=== PATIENT | male | born 1960 | race Caucasian/White ===

== ENCOUNTER 2017-01-10 12:53 | Inpatient (IN) | payer MEDICARE, MEDICAID ==
[~2017-01-10] VITALS: Ht 175.3 cm; Wt 79.4 kg
[2017-01-10 13:36] LABS: HEMATOCRIT 47.9 % (42.0-54.0); HEMOGLOBIN 16.9 g/dL (13.5-17.5); MCH 28.6 pg (26.0-34.0); MCHC 35.3 g/dL (31.0-37.0); MEAN PLATELET VOLUME 10.1 fL (7.4-10.4); PLATELET COUNT 270 10x3/uL (130-400); RBC 5.91 10x6/uL (4.20-6.10); RDW 13.9 % (11.5-14.5); WBC 24.6 10x3/uL (4.8-10.8)
[2017-01-10 13:42] LABS: APPEARANCE CLOUDY (CLEAR); BILIRUBIN NEGATIVE (NEGATIVE); COLOR AMBER (YELLOW); GLUCOSE NEGATIVE (NEGATIVE); KETONE SMALL mg/dL (NEGATIVE); LEUKOCYTE ESTERASE TRACE (NEGATIVE); NITRITE NEGATIVE (NEGATIVE); PROTEIN TRACE mg/dL (NEGATIVE); SPECIFIC GRAVITY 1.025 (1.005-1.020); UROBILINOGEN NORMAL (NORMAL)
[2017-01-10 13:48] LABS: AMORPHOUS SEDIMENT <1+ /lpf (NONE SEEN); BACTERIA MODERATE /hpf (NONE SEEN); EPITHELIAL CELLS OCC /hpf (0-5); GRANULAR CAST RARE /lpf (NONE SEEN); HYALINE CAST OCC /lpf (NONE SEEN); MUCUS >1+ /lpf (NONE SEEN); RED CELLS - URINE OCC /hpf (0-5); WHITE CELLS - URINE 0-5 /hpf (0-5)
[2017-01-10 13:50] LABS: ALBUMIN 3.8 g/dL (3.4-5.0); ALKALINE PHOSPHATASE 139 U/L (46-116); ALT (SGPT) 21 U/L (10-68); BILIRUBIN - TOTAL 1.06 mg/dL (0.2-1.3); CALC OSMOLALITY 281 mosm/kg (275-300); CALCIUM 9.3 mg/dL (8.5-10.1); CARBON DIOXIDE 20.7 mmol/L (21.0-32.0); CHLORIDE - SERUM 104 mmol/L (98-107); CREATININE - SERUM 0.7 mg/dL (0.6-1.3); GLUCOSE 158 mg/dL (74-106); POTASSIUM - SERUM 3.6 mmol/L (3.5-5.1); PROTEIN - SERUM 7.9 g/dL (6.4-8.2); SODIUM 139 mmol/L (136-145); UREA NITROGEN 14 mg/dL (7-18); eGFR NON AFRICAN AMERICAN > 90 mL/min (90-120)
[2017-01-10 13:55] LABS: LYMPHOCYTES 9 % (15-50); MONOCYTES 3 % (2-11); NEUTROPHILS 84 % (40-80); PLATELET ESTIMATE NORMAL
--- NOTE | 2017-01-10 15:58 | NUR ---
RECEIVED TO ROOM 2215 FROM ER VIA . IV TO R FA PATENT. NG TUBE CONNECTED TO LIS.
[2017-01-10] MEDS ORDERED: OXYMORPHONE HCL30 MG (16:15)
[2017-01-10] MEDS ORDERED: ZOCOR80 MG PO (16:16)
[2017-01-10] MEDS ORDERED: FLOMAX0.4 MG PO ×2 (16:16)
[2017-01-10] MEDS ORDERED: OXYCONTIN15 MG PO (16:16)
[2017-01-10] MEDS ORDERED: CARAFATE1 G PO (16:17)
[2017-01-10] MEDS ORDERED: PHENERGAN25 M1 PO (16:17)
[2017-01-10] MEDS ORDERED: LUNESTA3 MG PO (16:17)
[2017-01-10] MEDS ORDERED: ROBAXIN-750750 MG PO (16:18)
[2017-01-10] MEDS ORDERED: NEURONTIN 300300 MG PO (16:19)
[2017-01-10 16:26] VITALS: BP 129/89; BMI 25.9
--- NOTE | 2017-01-10 16:50 | NUR ---
GALLERY OR MUSEUM GUIDE DILAUDID 0.2-10-4 SETUP FOR PAIN CONTROL.
--- NOTE | 2017-01-10 17:30 | NUR ---
ASKING FOR SOMETHING TO DRINK. EXPLAINED THAT WHILE NPO WITH NG TUBE HE WON'T BE ABLE TO HAVE ANYTHING TO DRINK. VOICED UNDERSTANDING. MOUTH SWAB GIVEN.
[2017-01-10 17:58] VITALS: BP 129/83
[2017-01-10 19:00] VITALS: BP 100/76
[2017-01-11 00:05] VITALS: BP 105/73
--- NOTE | 2017-01-11 03:02 | NUR ---
NGT FELL OUT OF PATINET'S NARE. HE ATTEMPTED TO PLACE IT HIMSELF MULTIPLE TIMES. MINIMAL DRAINAGE NOTED FROM NGT. DID NOT REPLACE
[2017-01-11 03:30] VITALS: BP 99/59
--- NOTE | 2017-01-11 05:02 | NUR ---
PIV TO RIGHT FOREARM ACCIDENTLY PULLED OUT WITH CATH INTACT. NEW 20G PIV PLACED IN LEFT FOREARM IV FLUIDS HOOKED BACK UP.
--- NOTE | 2017-01-11 05:55 | NUR ---
PATIENT RESTING WITH EYES CLOSED AND NO VISIBLE SIGNS OF DISTRESS. BED IN LOWEST POSITION AND CALL LIGHT WITHIN REACH.
--- NOTE | 2017-01-11 07:40 | NUR ---
ASSESSMENT COMPLETE. IV TO L FA PATENT. GOLD LAYER DILAUDID 0.2-10-4 IN USE FOR PAIN CONTROL. DENIES ANY COMPLAINT OF NAUSEA AT THIS TIME.
--- NOTE | 2017-01-11 07:41 | NUR ---
RESTING QUIETLY WITH EYES CLOSED. RESP EVEN,NONLABORED. FAMILY AT BEDSIDE.
[2017-01-11 09:36] VITALS: BP 111/67
--- NOTE | 2017-01-11 11:12 | NUR ---
WANTING TO WALK IN HALLWAYS. INSTRUCTED NOT TO LEAVE FLOOR. VOICED UNDERSTANDING.
--- NOTE | 2017-01-11 15:00 | NUR ---
NO CHANGES NOTED AT PRESENT. AMBULATING FREQUENTLY IN HALLWAYS.
[2017-01-11 15:51] VITALS: BP 104/66
--- NOTE | 2017-01-11 17:30 | NUR ---
REQUESTING BOTTLE OF MAGNESIUM CITRATE. STATES HE HASN'T HAD A BM IN [address] RAYGOZA. ORDER RECEIVED FOR 4 OZ'S OF MAG CITRATE.
[2017-01-11 20:00] VITALS: BP 99/63
--- NOTE | 2017-01-12 02:25 | NUR ---
PATIENT RESTING WITH EYES CLOSED AND NO VISIBLE SIGNS OF DISTRESS. BED IN LOWEST POSITION AND CALL LIGHT WITHIN REACH.
--- NOTE | 2017-01-12 03:14 | NUR ---
PATIENT REPORTED HAVING A LARGE DARK BM.
[2017-01-12 04:00] VITALS: BP 90/60
[2017-01-12 05:41] LABS: BASOPHILS 0.1 % (0-2); EOSINOPHILS 1.8 % (0-7); HEMATOCRIT 37.6 % (42.0-54.0); HEMOGLOBIN 12.6 g/dL (13.5-17.5); IMMATURE GRANULOCYTES 0.3 % (0-5); LYMPHOCYTES 7.6 % (15-50); MCH 27.8 pg (26.0-34.0); MCHC 33.5 g/dL (31.0-37.0); MEAN PLATELET VOLUME 10.5 fL (7.4-10.4); MONOCYTES 8.5 % (2-11); NEUTROPHILS 81.7 % (40-80); PLATELET COUNT 186 10x3/uL (130-400); RBC 4.53 10x6/uL (4.20-6.10); RDW 14.3 % (11.5-14.5); WBC 14.3 10x3/uL (4.8-10.8)
[2017-01-12 05:48] LABS: ALKALINE PHOSPHATASE 133 U/L (46-116); BILIRUBIN - DIRECT 0.13 mg/dL (0.00-0.30); BILIRUBIN - INDIRECT 0.52 mg/dL (0.00-1.00); BILIRUBIN - TOTAL 0.65 mg/dL (0.2-1.3); CALCIUM 7.8 mg/dL (8.5-10.1); CARBON DIOXIDE 22.4 mmol/L (21.0-32.0); CHLORIDE - SERUM 103 mmol/L (98-107); CREATININE - SERUM 0.6 mg/dL (0.6-1.3); GLUCOSE 120 mg/dL (74-106); POTASSIUM - SERUM 3.4 mmol/L (3.5-5.1); SODIUM 134 mmol/L (136-145); eGFR NON AFRICAN AMERICAN > 90 mL/min (90-120)
[2017-01-12 05:54] LABS: ALBUMIN 2.4 g/dL (3.4-5.0); ALT (SGPT) 84 U/L (10-68); CALC OSMOLALITY 266 mosm/kg (275-300); UREA NITROGEN 6 mg/dL (7-18)
--- NOTE | 2017-01-12 07:20 | NUR ---
PATIENT RECEIVED UP AMBULATING WITHOUT ASSIST. NO SIGNS OF DISTRESS NOTED. DENIES NEEDS.
--- NOTE | 2017-01-12 08:28 | NUR ---
PATIENT UP AMBULATING IN ROOM. NO SIGNS OF DISTRESS NOTED. SCHEDULED MEDICATION ADMINISTERED. DENIES NEEDS. SIDE RAILS UP X2. BED IN LOW POSITION. CALL LIGHT IN REACH.
[2017-01-12 08:54] VITALS: BP 109/72
--- NOTE | 2017-01-12 11:00 | NUR ---
PATIENT UP AMBULATING IN HALLWAY WITHOUT ASSIST. NO SIGNS OF DISTRESS NOTED.
[2017-01-12 12:19] VITALS: BP 102/68
[2017-01-12 13:08] VITALS: Ht 175.3 cm; Wt 79.4 kg
--- NOTE | 2017-01-12 14:30 | NUR ---
ALERT IN BED WATCHING TV. NO SIGNS OF DISTRESS NOTED. SCHEDULED MEDICATION ADMINISTERED. CONSENTS OBTAINED FOR SCHEDULED SURGERY. DENIES NEEDS. BED IN LOW POSITION. CALL LIGHT AND BANQUET COORDINATOR BUTTON IN REACH.
--- NOTE | 2017-01-12 14:53 | NUR ---
Patient Name: YUMIKO WADE Admission Status: ER Accout number: [id number] Admission Date: 01-10-2017 : 1960 Admission Diagnosis: Attending: SD RAYGOZA Current LOS: 2 Anticipated DC Date: 01-13-2017 Planned Disposition: Home or Self Care Primary Insurance: MEDICARE A & B Discharge Planning Comments: CM met with patient to assess discharge planning needs. Patient lives independently with his Liz, who will be the one to drive him home at discharge. Patient denies any use of medical equipment or HH and does not think that he will need it upon discharge. He denies any steps to enter in his home and states his home is safe to return home to. CM will continue to follow and assist as needed with discharge plans. PCP: Usman Cloud ([phone]) Milk Delivery Driver: Isabella Desai * Is the patient Alert and Oriented? Yes 0 * How many steps to enter\exit or inside your home? 0 0 * PCP [facility] 0 * Pharmacy [facility] 0 * Preadmission Environment Home with Family 0 * ADLs Independent 0 * Equipment None 0 * List name and contact numbers for known caregivers / representatives who currently or will assist patient after discharge: Liz Cloud ([phone]) 0 * Community resources currently utilized None 0 * Can the patient safely return to the preadmission environment? Yes 0 * Has this patient been hospitalized within the prior 30 days at any hospital? No 0 Grand Total: 0
--- NOTE | 2017-01-12 17:30 | NUR ---
PATIENT UP AMBULATING AT BEDSIDE. NO SIGNS OF DISTRESS NOTED. DENIES NEEDS.
[2017-01-12 20:00] VITALS: BP 114/72
--- NOTE | 2017-01-12 20:00 | NUR ---
ASSESSMENT PER FLOWSHEET. UP AD RITESH WALKING IN HALLWAY WITH HIS . IV PATENT LEFT ARM OF 1/2NS INFUSING AT 100CC'S/HR SITE CLEAR. AIRCRAFT STRUCTURAL REPAIRER OF DILAUDID IN USE WITH SETTINGS AT 0.2MG Q10MIN W/4MG Q4H L/O.
--- NOTE | 2017-01-12 21:00 | NUR ---
MEDS GIVEN PER MAR. MARVIN BEAVERS.
[2017-01-12 23:44] VITALS: BP 101/50
[2017-01-13] VITALS (9 sets, daily range): BP systolic 104–150; BP diastolic 71–99
--- NOTE | 2017-01-13 | NUR ---
NPO FOR SURGERY IN AM.
--- NOTE | 2017-01-13 02:00 | NUR ---
EYES CLOSED RESPIRATIONS WITH EASE AND UNLABORED.
[2017-01-13 05:54] LABS: BASOPHILS 0.2 % (0-2); EOSINOPHILS 1.7 % (0-7); HEMATOCRIT 37.3 % (42.0-54.0); HEMOGLOBIN 12.5 g/dL (13.5-17.5); IMMATURE GRANULOCYTES 0.2 % (0-5); LYMPHOCYTES 9.5 % (15-50); MCHC 33.5 g/dL (31.0-37.0); MCV 83.6 fL (80.0-100.0); MEAN PLATELET VOLUME 10.8 fL (7.4-10.4); MONOCYTES 7.4 % (2-11); PLATELET COUNT 217 10x3/uL (130-400); RBC 4.46 10x6/uL (4.20-6.10); RDW 14.2 % (11.5-14.5); WBC 11.3 10x3/uL (4.8-10.8)
[2017-01-13 06:30] LABS: ALBUMIN 2.4 g/dL (3.4-5.0); ALKALINE PHOSPHATASE 184 U/L (46-116); CALCIUM 8.3 mg/dL (8.5-10.1); CARBON DIOXIDE 22.2 mmol/L (21.0-32.0); CHLORIDE - SERUM 111 mmol/L (98-107); CREATININE - SERUM 0.5 mg/dL (0.6-1.3); GLUCOSE 131 mg/dL (74-106); POTASSIUM - SERUM 3.6 mmol/L (3.5-5.1); SODIUM 143 mmol/L (136-145); eGFR NON AFRICAN AMERICAN > 90 mL/min (90-120)
[2017-01-13 06:33] LABS: ALT (SGPT) 158 U/L (10-68); CALC OSMOLALITY 284 mosm/kg (275-300); UREA NITROGEN 8 mg/dL (7-18)
--- NOTE | 2017-01-13 07:15 | NUR ---
PATIENT RECEIVED IN LOW PERALTA POSITION RESTING WITH EYES CLOSED. RESPIRATIONS EVEN AND UNLABORED. SIDE RAILS UP X2. BED IN LOW POSITION. CALL LIGHT IN REACH. DENIES NEEDS.
--- NOTE | 2017-01-13 09:33 | NUR ---
ALERT IN BED. NO SIGNS OF DISTRESS NOTED. PRE PROCEDURE MEDICATION ADMINISTERED.
--- NOTE | 2017-01-13 13:25 | NUR ---
PATIENT OFF FLOOR TO SURGERY
--- NOTE | 2017-01-13 15:45 | NUR ---
THE PATIENT REPORTED THE NEED TO URINATE UPON ENTRANCE TO THE RECOVERY AND URINATED IN THE BED. URINAL WAS PROVIDED HOWEVER THE patient was confused.
--- NOTE | 2017-01-13 15:50 | NUR ---
BED CHANGED IN RECOVERY AND THE PATIENT IS NOW ORIENTED.
--- NOTE | 2017-01-13 16:10 | NUR ---
PATIENT BACK TO ROOM FROM PACU. PATIENT A/O X4. VITAL SIGNS STABLE. DENIES NEEDS. SIDE RAILS UP X2. BED IN LOW POSITION. CALL LIGHT IN REACH. PRESENT.
--- NOTE | 2017-01-13 17:33 | NUR ---
PATIENT UP AMBULATING IN HALLWAY WITH . NO SIGNS OF DISTRESS NOTED.
--- NOTE | 2017-01-13 20:00 | NUR ---
ASSESSMENT PER FLOWSHEET. LAP INCISIONS X4 TO ABDOMEN C/D/I. IV PATENT LEFT ARM OF 1/2 NS AT 100CC'S/HR SITE CLEAR.
--- NOTE | 2017-01-13 21:00 | NUR ---
MEDS GIVEN PER JUL. UP AD RITESH IN HALLWAY WITH .[id number] PT REFUSES S/S.
--- NOTE | 2017-01-14 | NUR ---
EYES CLOSED RESPIRATIONS WITH EASE AND UNLABORED.
--- NOTE | 2017-01-14 03:00 | NUR ---
EYES CLOSED RESPIRATIONS WITH EASE AND UNLABORED.
[2017-01-14 04:00] VITALS: BP 120/79
--- NOTE | 2017-01-14 04:52 | NUR ---
RESTING QUIETLY DENIES NEEDS.
[2017-01-14 06:01] LABS: BASOPHILS 0.2 % (0-2); EOSINOPHILS 1.8 % (0-7); HEMATOCRIT 36.6 % (42.0-54.0); HEMOGLOBIN 12.2 g/dL (13.5-17.5); IMMATURE GRANULOCYTES 0.3 % (0-5); LYMPHOCYTES 16.1 % (15-50); MCH 27.7 pg (26.0-34.0); MCHC 33.3 g/dL (31.0-37.0); MCV 83.2 fL (80.0-100.0); MEAN PLATELET VOLUME 10.2 fL (7.4-10.4); MONOCYTES 7.2 % (2-11); NEUTROPHILS 74.4 % (40-80); PLATELET COUNT 251 10x3/uL (130-400); RDW 14.2 % (11.5-14.5)
[2017-01-14 06:17] LABS: ALBUMIN 2.4 g/dL (3.4-5.0); ALKALINE PHOSPHATASE 173 U/L (46-116); ALT (SGPT) 141 U/L (10-68); BILIRUBIN - TOTAL 0.33 mg/dL (0.2-1.3); CALC OSMOLALITY 283 mosm/kg (275-300); CALCIUM 8.2 mg/dL (8.5-10.1); CARBON DIOXIDE 27.1 mmol/L (21.0-32.0); CHLORIDE - SERUM 108 mmol/L (98-107); CREATININE - SERUM 0.6 mg/dL (0.6-1.3); GLUCOSE 148 mg/dL (74-106); POTASSIUM - SERUM 3.2 mmol/L (3.5-5.1); PROTEIN - SERUM 6.2 g/dL (6.4-8.2); SODIUM 142 mmol/L (136-145); UREA NITROGEN 6 mg/dL (7-18); eGFR NON AFRICAN AMERICAN > 90 mL/min (90-120)
--- NOTE | 2017-01-14 07:30 | NUR ---
RECIEVED PT DURING WALKING ROUNDS. PT RESTING IN BED WITH COMPLAINTS OF PAIN OF A 7 ON A SCALE OF 1-10. MEDICATION TO BE GIVEN PER ORDER. ASSESSMENT DONE PER FLOWSHEET. BED IN LOW POSITION AND CALL LIGHT WITHIN REACH. WILL CONTINUE TO MONITOR.
[2017-01-14 08:38] VITALS: BP 149/76
--- NOTE | 2017-01-14 12:10 | NUR ---
PT TEMP 101.7 AT THIS TIME, RECIEVED ORDERS FOR BLOOD CULTURES, AWAITING CULTURES TO BE OBTAINED.
--- NOTE | 2017-01-14 12:37 | NUR ---
CALLED INTO PTS ROOM AT THIS TIME DUE TO IV LEAKING, IV RED AND SWOLLEN. DC'D IV AT THIS TIME. WILL RE-SITE AT A LATER TIME. PT REQUESTED TO WALK AROUND THE UNIT BEFORE RESITING. WILL CONTINUE TO MONITOR.
--- NOTE | 2017-01-14 13:40 | NUR ---
IV RESITED TO RIGHT FOREARM, 20G ONE ATTEMPT. FLUSHED WITH 10CC OF NS AND SECURED WITH OP-SITE AND TAPE. PT TOLERATED WELL. BED IN LOW POSITION AND CALL LIGHT WITHIN REACH. WILL CONTINUE TO MONITOR.
[2017-01-14 16:24] VITALS: BP 126/67
[2017-01-14 19:00] VITALS: BP 141/76
--- NOTE | 2017-01-14 20:00 | NUR ---
ASSESSMENT PER FLOWSHEET. IV PATENT RT FOREARM SALINE LOCKED UP AD RITESH IN HALLWAYS WITH HIS . LAP INCISIONS X4 TO ABDOMEN C/D/I. DENIES NEEDS.
--- NOTE | 2017-01-14 21:15 | NUR ---
C/O CONSTIPATION MOM 30 ML PO GIVEN FOR CONSTIPATION. MEDS GIVEN PER JUL. GDNP=[id number]. NO COVERAGE.
--- NOTE | 2017-01-14 22:00 | NUR ---
AMBULATED IN MARTIN AGAIN THEN BACK TO BED. SR UP X2 CALL LIGHT WITHIN REACH.
--- NOTE | 2017-01-15 | NUR ---
EYES CLOSED RESPIRATIONS WITH EASE AND UNLABORED.
[2017-01-15 04:00] VITALS: BP 136/103
[2017-01-15 05:47] LABS: BASOPHILS 0.1 % (0-2); EOSINOPHILS 1.7 % (0-7); HEMATOCRIT 37.1 % (42.0-54.0); HEMOGLOBIN 12.3 g/dL (13.5-17.5); IMMATURE GRANULOCYTES 0.4 % (0-5); LYMPHOCYTES 18.4 % (15-50); MCH 27.8 pg (26.0-34.0); MCHC 33.2 g/dL (31.0-37.0); MCV 83.7 fL (80.0-100.0); MEAN PLATELET VOLUME 9.8 fL (7.4-10.4); MONOCYTES 10.2 % (2-11); NEUTROPHILS 69.2 % (40-80); PLATELET COUNT 243 10x3/uL (130-400); RBC 4.43 10x6/uL (4.20-6.10); RDW 14.1 % (11.5-14.5); WBC 7.5 10x3/uL (4.8-10.8)
[2017-01-15 06:09] LABS: ALBUMIN 2.3 g/dL (3.4-5.0); ALKALINE PHOSPHATASE 164 U/L (46-116); ALT (SGPT) 125 U/L (10-68); BILIRUBIN - TOTAL 0.17 mg/dL (0.2-1.3); CALCIUM 8.1 mg/dL (8.5-10.1); CARBON DIOXIDE 24.9 mmol/L (21.0-32.0); CHLORIDE - SERUM 108 mmol/L (98-107); CREATININE - SERUM 0.6 mg/dL (0.6-1.3); GLUCOSE 163 mg/dL (74-106); POTASSIUM - SERUM 3.4 mmol/L (3.5-5.1); PROTEIN - SERUM 6.2 g/dL (6.4-8.2); SODIUM 141 mmol/L (136-145); eGFR NON AFRICAN AMERICAN > 90 mL/min (90-120)
[2017-01-15 06:11] LABS: CALC OSMOLALITY 284 mosm/kg (275-300); UREA NITROGEN 12 mg/dL (7-18)
--- NOTE | 2017-01-15 08:03 | NUR ---
REC'D IN BED AWAKE AND ALERT. RESP EVEN AND UNLABORED WITH NO DISTRESS NOTED. CAN EXPRESS NEEDS AND WANTS. TURN AND REPOSITION SELF AB RITESH. C/O PAIN RATING 4/10 ON PAIN SCALE TO ABD. ASSESSMENT COMPLETED. AT BEDSIDE. C/L IN REACH.
[2017-01-15 08:31] VITALS: BP 153/85
[2017-01-15 12:40] VITALS: BP 124/85
--- NOTE | 2017-01-15 13:00 | NUR ---
NUTRITION F/U CHART REVIEWED. TOLERATING REG DIET, ONLY ~ 25% INTAKE BREAKFAST. WILL CONTINUE TO MONITOR INTAKE, PT PROGRESS. RD FOLLOWING
--- NOTE | 2017-01-15 13:04 | NUR ---
UP AMBULATING IN HALLWAY. DENIES ANY NEEDS AT PRESENT.
--- NOTE | 2017-01-15 13:32 | NUR ---
CONTINUE TO REST WELL AT THIS TIME. NO C/O NOTE OR VOICED. OUT AMBULATING WITH SLOW AND STEADY GAIT. AND C/L IN REACH AT BEDSIDE.
[2017-01-15 16:15] VITALS: BP 124/85
--- NOTE | 2017-01-16 14:02 | OP ---
PATIENT NAME: YUMIKO WADE MEDICAL RECORD: [id number] :60 LOCATION:[id number] ADMISSION DATE:01/10/17 SURGEON: JACK TUCKER MD DATE OF OPERATION: 01/13/2017 PREOPERATIVE DIAGNOSES: 1. Acute cholecystitis. 2. Diabetes mellitus. 3. Gastroesophageal reflux disease. 4. Benign prostatic hypertrophy. POSTOPERATIVE DIAGNOSES: 1. Acute cholecystitis. 2. Diabetes mellitus. 3. Gastroesophageal reflux disease. 4. Benign prostatic hypertrophy. PROCEDURES: 1. Laparoscopic cholecystectomy. 2. Umbilical hernia repair. SURGEON: Jack Tucker MD REPORT OF PROCEDURE: The patient's abdomen was prepped and draped in sterile fashion. A cutdown was made on the superior aspect of the umbilicus. We immediately encountered a fat-containing hernia defect. I cleared up the edges of the hernia defect and placed this back into the abdominal cavity. I then bluntly entered the abdominal cavity and placed a 12-mm Ifeoma port. Under direct visualization, a 5 mm trocar was placed in the epigastrium and 2 more 5-mm trocars were placed in the right subcostal region. The gallbladder was grasped and elevated and noted to be markedly inflamed. There were a lot of fatty adhesions around it which had to be taken down with blunt dissection and electrocautery. We eventually dissected through this tissue, was able to get down to the cystic artery and cystic duct. These structures were clipped proximally and distally and ligated in standard fashion. The gallbladder was then taken off the liver bed using electrocautery and placed into an Endo Catch bag. The liver bed was then treated with electrocautery to stop any bleeding. We irrigated out the right upper quadrant and assured there was no sign of any bleeding or bile leakage. At this point, the ports and insufflation were then removed and the gallbladder was taken out through the umbilicus. The umbilical fascia was closed with interrupted 0 Vicryls times 5 including the small umbilical hernia. The umbilicus was then tacked down using an interrupted 3-0 Vicryl. We then irrigated out the wound with normal saline and infused 10 mL of 0.25% Marcaine with epinephrine. The skin incisions were all with subcutaneous 5-0 Monocryl and dressed appropriately. COMPLICATIONS: None. CONDITION: Stable. ANESTHESIA: General endotracheal and local. BLOOD LOSS: 50 mL. TRANSINT:[id number] Voice Confirmation ID: [id number] DOCUMENT ID: [id number] OPERATIVE REPORT [id number] YUMIKO WADE CHRISTIAN MD at 1402 CC: [id number] DICTATION DATE: 01/13/17 1536 HEEL SEAT FITTER MACHINE: 01/13/172221 DIS IN 01/15/17 [place] [id number] [place] [id number]
== END 2017-01-15 16:22 | disposition home or self-care (01) | DRG 418 ==
LOC: D.ER 12:53 → D.MS 14:44
PROVIDERS: Emergency Medicine; Family Medicine Adult Medicine; Surgery; ADMIT Emergency Medicine
PROC: 0FT44ZZ Resection of Gallbladder, Percutaneous Endoscopic Approach (ICD-10-PCS; principal; 2017-01-13 12:45)
PROC: 0WQF4ZZ Repair Abdominal Wall, Percutaneous Endoscopic Approach (ICD-10-PCS; 2017-01-13 12:45)
DX: K81.0 Acute cholecystitis (principal); K56.60 Unspecified intestinal obstruction; K21.9 Gastro-esophageal reflux disease without esophagitis; N40.0 Benign prostatic hyperplasia without lower urinary tract symptoms; E11.65 Type 2 diabetes mellitus with hyperglycemia